=== PATIENT | male | born 1955 | race Caucasian/White ===

== ENCOUNTER 2022-01-09 10:08 | Emergency (ER) | payer OTHER, MEDICARE ==
[~2022-01-09] VITALS: Ht 162.6 cm; Wt 63.6 kg
[2022-01-09 11:18] VITALS: BP 135/88
== END 2022-01-09 11:18 | disposition home or self-care (01) | DRG 552 ==
LOC: ED 10:08
DX: S16.1XXA Strain of muscle, fascia and tendon at neck level, initial encounter (principal); S50.812A Abrasion of left forearm, initial encounter; V43.52XA Car driver injured in collision with other type car in traffic accident, initial encounter